=== PATIENT | female | born 2000 | race Caucasian/White ===

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

== ENCOUNTER → 2021-01-28 | Outpatient (CLI) | payer OTHER ==
--- NOTE | 2021-01-28 16:25 | RAD ---
US PELVIS COMPLETE History: Reason: PELVIC PAIN / Spl. Instructions: / History: Comparison: None Technique: Grayscale and color Doppler imaging of the pelvis was performed using transabdominal techn ique. Findings: Degraded evaluation of the uterus transabdominal technique. Uterus and transverse measurement 4 cm. D ecompressed urinary bladder. Bilateral ovaries not identified due to overlying structures and positioning. IMPRESSION: 1. Degraded evaluation of the uterus and ovaries. If persistent clinical concern, transvaginal ultra sound can further evaluate. Electronically signed by: Tom Lugo DO (01/28/2021 4:23 PM) [id number]
== END ==
LOC: US 14:29
PROVIDERS: ATTEND Physician Assistant Medical
DX: R10.2 Pelvic and perineal pain (principal)
CPT/HCPCS: 76856